=== PATIENT | male | born 1955 | race Caucasian/White ===

== ENCOUNTER 2019-11-28 09:12 | Outpatient (CLI) | payer OTHER, SELFPAY ==
--- NOTE | 2019-11-28 09:16 | ECG_ITS ---
Measurements Intervals Joseph Rate: 56 P: 48 IN: 135 QRS: 62 QRSD: 110 T: 50 QT: 401 QTc: 388 Interpretive Statements SINUS BRADYCARDIA MINIMAL Q WAVES- INFERIOR LEADS BORDERLINE ECG Electronically Signed On 11-28-2019 10:47:29 DIGITAL PRODUCT MANAGER by Rubin León D.O.
== END 2019-11-28 09:13 | disposition home or self-care (01) ==
LOC: ANHSURGERY 09:16
PROVIDERS: PCP Emergency Medicine; Visit Provider Surgery
DX: I10 Essential (primary) hypertension (principal)
CPT/HCPCS: 93005

== ENCOUNTER 2019-12-06 01:39 | Day surgery (SDC) | payer OTHER, SELFPAY ==
[2019-11-22 14:13] VITALS: BMI 25.1
--- NOTE | 2019-12-05 11:15 | PM.SD ---
Same Day Admit/Disch: HPI History of Present Illness Chief complaint: Right Inguinal Hernia Narrative: Aditya Walters is a 64 year old male who presented with a bulge in the right groin area for 7 or 8 months. It has gotten larger. He had a previous left inguinal hernia repaired in 2013 by another surgeon. He was seen in the office and felt to have a small right inguinal hernia. He is taken to surgery now for right inguinal hernia repair. [facility] Past Medical History Medical History HTN (hypertension) Mitral valve prolapse Family History Family History Mother Diabetes mellitus Cerebrovascular accident Pulmonary fibrosis Sibling Acute myocardial infarction Heart attack Father Family history of congestive heart failure Social History Social History Smoking status: Never smoker Alcohol intake: current Same Day Admit/Disch: Med Pre-admit Medications Home Medications Medication Instructions Recorded Confirmed Type losartan 100 mg tablet 100 mg PO DAILY 10/23/19 12/06/19 History hydrocodone-acetaminophen 1 - 2 tablet PO Q6H PRN #7 tablet 12/06/19 Rx ketorolac 10 mg PO Q6H 4 Days #16 tablet 12/06/19 Rx Exam Const: General: comfortable, no acute distress, alert and awake HENMT: Head: normocephalic and atraumatic Mouth: Yes Normal oral and palatal mucosa present Eyes: Conjunctivae: conjunctivae normal Pupils: Equal, round and reactive pupils present EOM: EOMs intact bilaterally Neck: Neck: normal visual inspection, no lymphadenopathy and nontender Resp: Effort & Inspection: normal respiratory effort Auscultation: clear to auscultation bilaterally Cardio: Rate: regular rate Rhythm: regular rhythm Heart sounds: no gallops, no murmurs and no rubs GI: Inspection: non-distended GI Palp: Yes Soft to palpation, No Tenderness to palpation present (GI), No Hepatomegaly present and No Splenomegaly present : Male General Exam: Yes hernia ( Right inguinal bulge which pulses with cough. Difficult to palpate.) Penis: Yes normal penis Scrotum: scrotum normal Testes: Testes normal Skin: Lesions: no lesions Rashes: no rashes Neuro: General: no focal motor deficits and CN's II-XI intact bilaterally Cranial nerves: Yes Equal, round and reactive pupils present, Yes Bilaterally intact EOM present, Yes facial symmetry and Yes Midline tongue present Speech: normal speech Motor exam (neuro): 5/5 motor strength present throughout and Motor abnormalities not present Extrem: General: no clubbing, cyanosis or edema and edema Psych: Affect: normal affect Thought process: Normal thought process present Insight: Good insight present (Psych) DS: Summary Time Spent with Patient Time attestation: Total time spent providing and/or coordinating discharge services: DS: Diagnosis Admitting Diagnosis Admitting Diagnosis: Essential (primary) hypertension Discharge Diagnosis (1) Inguinal hernia without obstruction or gangrene: Qualifiers: Laterality: unilateral Recurrence: non-recurrent Qualified Code(s): K40.90 - Unilateral inguinal hernia, without obstruction or gangrene, not specified as recurrent Code(s): K40.90 - Unilateral inguinal hernia, without obstruction or gangrene, not specified as recurrent Status: Chronic Assessment and Plan: I have recommended proceeding with right inguinal hernia repair. The procedure was discussed in detail. the likely use of mesh was discussed. The risks, benefits, and potential complications have been discussed. The usual time off work and recovery have been discussed. All questions were answered. Patient understands and agrees to go ahead. (2) Essential (primary) hypertension: Code(s): I10 - Essential (primary) hypertension Status: Chronic Discharge Plan Discharge
[2019-12-06 06:29] VITALS: BP 138/82; PULSE 78; RESP 18; TEMP 36.3; O2SAT 99
[2019-12-06] MEDS: LACTATED RINGERS 1,000 ML 30 ML IV CONT ×2 (06:35→09:00)
--- NOTE | 2019-12-06 07:02 | WPDANESEPPF ---
Anes - Initial Pre Proc Eval Procedure: Operation Date: 12/06/19 07:30 Proposed Procedures p Right Inguinal Hernia Repair - Robbie Mckeon MD Date/Time: 12/06/19 07:02 Surgeon: Robbie Mckeon MD Pre Op Diagnosis: Right Inguinal Hernia Patient Data Age: 64 Gender: M Height: 6 ft 1 in Weight: 88.4 kg Last Vital Signs Temp 36.3 C L 12/06/19 06:29 Pulse 78 12/06/19 06:29 Resp 18 12/06/19 06:29 BP 138/82 12/06/19 06:29 Pulse Ox 99 12/06/19 06:29 Allergies Allergy/AdvReac Type Severity Reaction Status Date / Time No Known Allergies Allergy Unknown Unverified 12/06/19 06:56 Home Medications Medication Instructions Recorded Confirmed Type losartan 100 mg tablet 100 mg PO DAILY 10/23/19 12/06/19 History Patient hx anesthesia problems: none Family hx anesthesia problems: none PMFSH Past Medical History Medical History HTN (hypertension) Mitral valve prolapse Family History Family History Mother Diabetes mellitus Cerebrovascular accident Pulmonary fibrosis Sibling Acute myocardial infarction Heart attack Father Family history of congestive heart failure Social History Social History Smoking status: Never smoker Alcohol intake: current Anes - Eval Final PreProcedure Day of Procedure 12/06/19 07:02 Patient weight: normal Heart: regular rate and rhythm Lungs: clear to auscultation Airway: Mallampati scale class 1 Neurological: alert and oriented Last oral intake: >/= 8 hours ASA classification: II Emergent: no Anesthetic plan: proceed Anesthesia type and monitoring: general GIVS and standard monitoring Informed Consent: The patient's anesthetic plan and its attendant risks and benefits were discussed with the patient/family/POA. Questions were solicited and answers provided to the satisfaction of the patient/family/POA.
--- NOTE | 2019-12-06 07:16 | WPDHPUPDATE1 ---
History and Physical Update Update Date/Time: 12/06/19 07:16 History and Physical has been reviewed, including an updated exam of the patient. There are NO changes in the patient's condition. Risks, benefits, and alternatives have been discussed and questions answered. Patient agrees to proceed with procedure.
[2019-12-06] MEDS: ceFAZolin 2 GM/D5W 50 ML 2 GM/50 ML BAG IVPB (07:28)
[2019-12-06] MEDS: KETOROLAC 30 MG/ML VIAL (*BKC) IV PUSH (08:32)
--- NOTE | 2019-12-06 08:46 | PM.PROC ---
Procedure Note - Detailed Date of procedure: 12/06/19 Pre-op diagnosis: Right Inguinal Hernia Right inguinal hernia Post-op diagnosis: same (Indirect hernia) Procedure performed: Repair of right inguinal hernia with 6 cm Parietex hernia mesh system Description of procedure: The patient was taken to surgery and IV sedation was administered. The right groin and genitalia were prepped and draped. Proposed incision was marked on the skin. Local was infiltrated into the skin and the deeper subcutaneous tissues. Incision was made and deepened through the subcutaneous. Crossing veins were cauterized and divided. Dissection was carried through Monique's fascia down to the external oblique aponeurosis. The aponeurosis was exposed as was the external ring. Additional local anesthesia was infiltrated deep to the aponeurosis in the area of the spermatic cord and inguinal canal contents. The aponeurosis was opened laterally and extended medially through the external ring. The leaves of the aponeurosis were dissected free from the spermatic cord. The ileoinguinal nerve was carefully preserved throughout the dissection and was left attached to the spermatic cord. The cord was then mobilized medially on a Bruner drain. The cord was dissected back to the internal ring. Dissection was then carried out in the anteromedial spermatic cord. The hernia sac was found and dissected free. The sac was opened so that I could place a finger within the hernia sac and facilitate this dissection. This opening was then closed with a running 3 0 Vicryl suture. The sac was then dissected back to a high dissection. It was dunked into the retroperitoneum. A 6 centimeter Parietex [place] was chosen. It was folded to form a plug. It was placed in the defect. The edges were sutured to the transversalis fascia with interrupted 3 0 Vicryl suture. The hernia defect was then partially closed with some additional 3 0 Vicryl suture. Patch was then cut to the appropriate size and placed over the inguinal canal floor. The lateral leaves were passed beyond the cord. The cord and ileoinguinal nerve were then laid over the patch. The external oblique aponeurosis was closed with interrupted 3 0 Vicryl suture. Monique's fascia was closed with interrupted 3 0 Vicryl suture. The subcutaneous was closed with interrupted 4 0 Vicryl suture. Four 0 Vicryl subcuticular skin sutures were placed. The skin was closed finally with a running 4 0 Monocryl skin suture. The wound was dressed with Exofin surgical adhesive. The patient was awakened and taken to recovery in good condition. Sponge and needle counts were correct x2. Anesthesia: MAC and local (0.5% Marcaine with Exparel) Surgeon: Robbie Mckeon MD Pipeline Dispatch Operator: Luli CHINO Estimated blood loss (mL): 5 Drains: No Packing: No Pathology: none sent Complications: None Condition: stable Disposition: PACU Findings: Indirect inguinal hernia. No sliding hernia was noted.
[2019-12-06 09:00] VITALS: BP 114/91; PULSE 56; RESP 12; TEMP 36.3; O2SAT 100
[2019-12-06 09:15] VITALS: BP 106/62; PULSE 56; RESP 12
[2019-12-06 09:30] VITALS: BP 119/77; PULSE 62; RESP 12
[2019-12-06 09:45] VITALS: BP 120/77; PULSE 52; RESP 12
[2019-12-06 10:25] VITALS: BP 118/77; PULSE 50; RESP 12
--- NOTE | 2019-12-08 06:37 | WPDANESEPP ---
Anes - Eval Pre Procedure Procedure: Operation Date: 12/06/19 07:30 Proposed Procedures p Right Inguinal Hernia Repair - Robbie Mckeon MD Date/Time: 12/08/19 06:37 Pre Op Diagnosis: Right Inguinal Hernia Patient Data Age: 64 Gender: M Height: 6 ft 1 in Weight: 88.4 kg Last Vital Signs Temp 97.3 F L 12/06/19 09:00 Pulse 50 L 12/06/19 10:25 Resp 12 12/06/19 10:25 BP 118/77 12/06/19 10:25 Pulse Ox 100 12/06/19 09:00 Allergies Allergy/AdvReac Type Severity Reaction Status Date / Time No Known Allergies Allergy Unknown Unverified 12/06/19 06:56 Home Medications Medication Instructions Recorded Confirmed Type losartan 100 mg tablet 100 mg PO DAILY 10/23/19 12/06/19 History hydrocodone-acetaminophen 1 - 2 tablet PO Q6H PRN #7 tablet 12/06/19 Rx ketorolac 10 mg PO Q6H 4 Days #16 tablet 12/06/19 Rx Patient hx anesthesia problems: none Family hx anesthesia problems: none PMFSH Past Medical History Medical History (Updated 12/08/19 @ 06:39 by Sreekanth Canchola CRNA) BPH (benign prostatic hyperplasia) HTN (hypertension) Mitral valve prolapse Surgical complication involving left eye Surgical History Surgical History (Updated 12/08/19 @ 06:37 by Sreekanth Canchola CRNA) H/O left inguinal hernia repair Family History Family History Mother Diabetes mellitus Cerebrovascular accident Pulmonary fibrosis Sibling Acute myocardial infarction Heart attack Father Family history of congestive heart failure Social History Social History Smoking status: Never smoker Alcohol intake: current Comments VR 56 SB SINUS BRADYCARDIA MINIMAL Q WAVES- INFERIOR LEADS BORDERLINE ECG Exam Day of Procedure 12/08/19 06:37
== END 2019-12-06 10:42 | disposition home or self-care (01) ==
PROVIDERS: PCP Emergency Medicine; Visit Provider Surgery
PROC: (CPT 49505; principal; 2019-12-06 07:30)
DX: K40.90 Unilateral inguinal hernia, without obstruction or gangrene, not specified as recurrent (principal); I10 Essential (primary) hypertension; I34.1 Nonrheumatic mitral (valve) prolapse
CPT/HCPCS: 49505; A9270; C1781; C9290; J0690; J1885; J2250; J2405; J2704; J3010; J7120

== ENCOUNTER 2020-06-23 18:13 | Inpatient (IN) | payer OTHER, SELFPAY ==
--- NOTE | ~2020-06-23 | CT_ITS ---
EXAMINATION: CT chest abdomen pelvis w con DATE: 06/24/2020 18:35 CDT INDICATION: Possible metastatic lesion to the brain. Left-sided facial droop with weakness. TECHNIQUE: Computed tomography (CT) of the chest, abdomen, and pelvis was performed with 100 cc Omnip aque 350 intravenous contrast. The dose-length product was 532.53 mGy-cm. Automated exposure control and iterative reconstruction technique were employed. COMPARISON: CT dated 03/14/2012 FINDINGS: CHEST CT: No thoracic lymphadenopathy. Heart size normal. No significant pleural or pericardial effusion. There is atherosclerosis of the aorta and coronary arteries. No evidence for aneurysm. There is a 2 mm rig ht upper lobe nodule, axial image 23. There is a 3 mm right upper lobe nodule, axial image 43. There are a few small 2 mm left upper lobe nodules. There is a 3 mm perifissural nodule in the left upper l obe, axial image 66. There is an additional 3 mm fissural nodule, axial image 69. There is right lowe r lobe atelectasis. There is left lower lobe atelectasis. Thyroid gland is unremarkable. ABDOMEN/PELVIS CT: Gallbladder contains hyperdense material, likely sludge or vicarious excretion of contrast. The liver , spleen, pancreas, adrenal glands are unremarkable. There are subcentimeter hypodensities of both ki dneys, most likely benign. Nonobstructive bowel gas pattern. Colonic diverticulosis without evidence for diverticulitis. No lymphadenopathy. Mild thoracic and lumbar spondylosis. No osteolytic or osteob lastic lesions are identified. IMPRESSION: 1. Multiple small pulmonary nodules measuring 3 mm or less, likely benign. Follow-up low dose CT in 1 2 months recommended. 2: Bilateral lower lobe atelectasis. Reviewed, dictated and finalized at location A. IMPRESSION: 1. Multiple small pulmonary nodules measuring 3 mm or less, likely benign. Foll ow-up low dose CT in 12 months recommended. 2: Bilateral lower lobe atelectasis.
--- NOTE | ~2020-06-23 | MR_ITS ---
EXAMINATION: MR brain/brain stem wo/w con EXAM DATE: 06/24/2020 11:30 INDICATION: Left facial droop, numbness, slurred speech. TECHNIQUE: Magnetic resonance imaging (MRI) of the brain/brain stem obtained without contrast. Sagit stephanie T1, axial diffusion, gradient echo (T2*), T1, T2, FLAIR sequences obtained. Patient was then inj ected with 17 cc intravenous Multihance contrast. Axial and coronal postcontrast T1 weighted sequence s obtained. Correlation is made to head CT from yesterday. FINDINGS: There is vague approximately 2 cm region of right frontal lobe kumari-white differentiation l oss identified on CT from yesterday. This has increased T2/FLAIR weighted signal, probably mild edema , with DWI T2 shine through. No restricted diffusion as would be expected with acute and early subacu te infarctions. Postcontrast image demonstrates somewhat ringlike pattern of enhancement within this measuring up to about 1 cm in size. Differential diagnosis includes vasogenic edema from metastatic l esion, primary FORCE DISPATCHER neoplasm, infection (focal cerebritis, tuberculoma, neurocysticercosis). No fluid pocket to suggest organized abscess. There is an incidental left frontal lobe developmental venous anomaly. No other signal abnormalities or areas of abnormal enhancement. Left lobe surgical change. Flow voids are seen in the cerebral mariusz oliver on the T2 weighted sequences consistent with their expected patency. There are no extra-axial co llections. There is no acute hemorrhage. IMPRESSION: 1. Focal region of somewhat circumscribed rounded right frontal lobe enhancement with associated vaso genic edema. Nonspecific with some considerations including metastatic lesion, infection, glioma. 2. No restricted diffusion, no acute infarction. Reviewed, dictated and finalized at location A. IMPRESSION: 1. Focal region of somewhat circumscribed rounded right frontal lobe enhancemen t with associated vasogenic edema. Nonspecific with some considerations includi ng metastatic lesion, infection, glioma. 2. No restricted diffusion, no acute infarction.
--- NOTE | ~2020-06-23 | CT_ITS ---
EXAMINATION: CTA BRAIN/CAROTID DATE: 06/23/2020 18:39 INDICATION: Left-sided facial droop TECHNIQUE: Computed tomographic angiography (CTA) of the head and neck was performed with 100 mL Omni paque-350 intravenous contrast. Multiplanar reconstructions and maximum intensity projection 3D-recon structions of the carotid arteries and of the intracranial arteries were created by the technologist on a separate workstation. Automated exposure control and iterative reconstruction technique were emp loyed.The dose-length product was 1271.24 mGy-cm. COMPARISON: None. FINDINGS: Carotid arteries: There is 0% stenosis of the left and right carotid bulbs relative to normal distal artery lumen diame ter (NASCET criteria). Left vertebral artery is dominant. Cervical soft tissues are unremarkable. Mil d dependent atelectasis in the upper lungs likely related to expiratory phase of imaging. Intracranial arteries Atherosclerotic plaque without hemodynamically significant stenosis at the bilateral carotid siphons. There is no hemodynamically significant stenosis in the vertebral, basilar and internal carotid mariusz oliver. There are no aneurysms identified. Both A1 and P1 segments are patent. Is also a patent anteri or communicating artery. Cerebral arterial arborization appears symmetric. A contrast-enhanced vessel seen extending to the previously noted region of loss of kumari-white matter differentiation seen in t he right frontal lobe on prior CT which remains concerning for acute infarct. IMPRESSION: 1. 0% stenosis of the left and right carotid bulbs relative to normal distal artery lumen diameter (N ASCET criteria). 2. Normal cerebral angiogram with contrast opacified vessels extending through the region of suspecte d right frontal lobe acute infarct identified on prior CT. Reviewed, dictated and finalized at location A. IMPRESSION: 1. 0% stenosis of the left and right carotid bulbs relative to normal distal ar harvey lumen diameter (NASCET criteria). 2. Normal cerebral angiogram with contrast opacified vessels extending through the region of suspected right frontal lobe acute infarct identified on prior CT .
--- NOTE | ~2020-06-23 | CT_ITS ---
EXAMINATION: CT brain wo con DATE: 06/23/2020 18:31 INDICATION: Left-sided facial droop TECHNIQUE: Computed tomography (CT) of the head was performed without intravenous contrast. Sagittal and coronal reconstructions were performed. The mA was adjusted according to patient size. Iterative reconstruction technique was employed. The dose-length product was 681.00 mGy-cm. COMPARISON: None FINDINGS: Small region of loss of kumari-white matter differentiation in the right frontal lobe suspicious for ac wilmar infarct. 3 small old lacunar infarcts in the right frontal lobe kennedy radiata. No acute intracra nial hemorrhage or abnormal extra axial fluid collection. Ventricles are normal and symmetric. No mas s/mass effect. High attenuation material within the left lobe potentially central canal for treatment of retinal detachment. Correlate with ophthalmic history. The paranasal sinuses and mastoid air cell s are normal. IMPRESSION: 1. Small region of loss of kumari-white matter differentiation in the right frontal lobe suspicious for acute infarct. No intracranial hemorrhage. Dr. Valentine discussed these findings with Dr. Roth at 6: 38 PM. 2. 3 small old lacunar infarcts in the right frontal lobe kennedy radiata. Reviewed, dictated and finalized at location A. IMPRESSION: 1. Small region of loss of kumari-white matter differentiation in the right front al lobe suspicious for acute infarct. No intracranial hemorrhage. Dr. Valentine discussed these findings with Dr. Roth at 6:38 PM. 2. 3 small old lacunar infarcts in the right frontal lobe kennedy radiata.
--- NOTE | ~2020-06-23 | XR_ITS ---
EXAMINATION: XR chest 1V portable DATE: 06/23/2020 19:13 INDICATION: Left-sided facial droop. Weakness. TECHNIQUE: frontal view of the chest was obtained. COMPARISON: Chest radiograph dated 06/22/2018 FINDINGS: The lungs remain hyperexpanded but clear with no focal airspace opacities, pulmonary edema, pleural e ffusion or pneumothorax. The cardiomediastinal silhouette is normal. Mild degenerative skeletal junior es in the spine and both shoulders. IMPRESSION: 1. No acute cardiopulmonary disease. Reviewed, dictated and finalized at location A.
--- NOTE | 2020-06-23 18:13 | ECG_ITS ---
Measurements Intervals [place] Rate: 69 P: 83 IA: 133 QRS: 83 QRSD: 106 T: 77 QT: 384 QTc: 412 Interpretive Statements SINUS RHYTHM NORMAL ECG Electronically Signed On 06-24-2020 6:58:09 CDT by Rubin León D.O.
[2020-06-23 18:19] LABS: Glucose Point of Care 107 (65-105)
[2020-06-23 18:30] VITALS: BP 154/105; PULSE 74; RESP 18; TEMP 36.7; O2SAT 98
[2020-06-23 18:38] VITALS: BP 154/105; PULSE 74; RESP 18; TEMP 36.7; O2SAT 98
[2020-06-23 18:44] LABS: Basophils Percent Auto 0.3 % (0.2-1.2); Eosinophils Percent Auto 0.2 % (0-4.4); Hemoglobin 14.1 g/dL (14.0-18.0); Immature Granulocyte Absolute 0.03 K/mm3 (0.00-0.031); Immature Granulocyte Percent A 0.3 % (0-0.5); Lymphocytes Percent Auto 19.7 % (18.3-44.2); Mean Corpuscular HGB Conc 35.3 g/dl (32-36); Mean Corpuscular Hemoglobin 32.3 pg (26-34); Mean Corpuscular Volume 91.7 fl (80-100); Mean Platelet Volume 9.7 fl (7.4-10.4); Monocytes Absolute Auto 0.5 K/mm3 (0.1-0.6); Monocytes Percent Auto 4.9 % (2.6-8.5); Neutrophils Absolute Auto 6.8 K/mm3 (1.3-6.7); Neutrophils Percent Auto 74.6 % (45.5-73.1); Platelet Count Result 205 k/mm3 (150-375); Red Blood Count 4.36 M/mm3 (4.6-6.20); Red Cell Distribution Width 11.7 % (11.5-14.5); White Blood Count 9.1 K/mm3 (4.5-10.0)
[2020-06-23 18:52] LABS: INR 1.1; Partial Thromboplastin Time 26.1 SECONDS (22.3-36.8); Prothrombin Time 14.2 Seconds (11.1-14.7)
[2020-06-23 18:55] LABS: Anion Gap 8 mmol/L (8-16); Blood Urea Nitrogen 17 mg/dL (9-20); Calcium 8.3 mg/dL (8.4-10.2); Carbon Dioxide 24 mmol/L (22-30); Chloride 101 mmol/L (98-107); Estimated CRCL calculation 75 ml/min; Estimated Glomerular Filt Rate > 60; Glucose 100 mg/dL (75-110); Sodium 133 mmol/L (137-145)
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
[2020-06-23 19:06] LABS: Troponin I < 0.012 ng/mL (0.000-0.034)
[2020-06-23] MEDS: ASPIRIN 81 MG CHEWABLE TABLET 324 MG PO (19:16)
[2020-06-23 19:27] VITALS: BP 104/79; PULSE 70; RESP 18; O2SAT 96
[2020-06-23 20:00] VITALS: BP 154/88; PULSE 69; RESP 16; TEMP 37.1; O2SAT 98
[2020-06-23] MEDS: CLOPIDOGREL BISULFATE 75 MG TABLET PO (20:03)
[2020-06-23 20:13] VITALS: BP 149/94; PULSE 70; RESP 18; O2SAT 93
--- NOTE | 2020-06-23 20:44 | PC.NURSE ---
This patient, Aditya Walters, was admitted to Medical Room 249-01. Patient/family oriented to hospital policies and general routines including ID bracelet, bed and alarms, visiting hours, pain management, procedures, bathroom and other care routines, personal items, smoking policy, room service/diet, and visiting hours. Valuables list has been completed. Information on how to activate the Rapid Response Team has been discussed. Patient/Family are encouraged to report perceived risks to care and to ask questions if they do not understand what they are told or what they should do.
[2020-06-23 20:46] VITALS: BMI 25.7
[2020-06-24] VITALS (10 sets, daily range): BP systolic 115–148; BP diastolic 64–75; PULSE 49–89; RESP 16–18; TEMP 36.4–36.8; O2SAT 95–99
--- NOTE | 2020-06-24 | ECHO_ITS ---
Patient Info Name: Aditya Walters Age: 65 years : 1955 Gender: Male Ht: 72 in Wt: 194 lbs BSA: 2.13 m2 HR: 60 bpm BP: 115 / 64 mmHg Heart Rhythm: Sinus Rhythm Technical Quality: Good Exam Date: 06/24/2020 9:35 AM Exam Location: [facility] Patient Status: Inpatient Admit Date: 06/23/2020 Staff Ordering Physician: Jacinta Quintanilla PA-C Adobe Cq Developer: Josue Little RDCS Attending Provider: Camille Villegas DO Referring Physician: Dwight MCCAIN; Exam Type: CA echo doppler w bubble study Study Info Indications 436.0 - CVA Complete two-dimensional, color flow and Doppler transthoracic echocardiogram is performed with agitated saline. Contrast/Agitated Saline Contrast/Ag. Saline: Agitated Saline Amount: 18.00 ml Existing IV Access: Yes History/Risk Factors Stroke; HTN. Summary 1. Left ventricular chamber dimension is normal. 2. Left ventricular systolic function is normal, estimated at 60-65%. 3. The left ventricular diastolic function is grade I diastolic dysfunction. 4. E/e' 6 is not elevated. 5. There is mild tricuspid valve regurgitation. 6. No pulmonary hypertension, estimated pulmonary arterial systolic pressure is 38 mmHg. Left Ventricle E/e' 6 is not elevated. Left ventricular chamber dimension is normal. Left ventricular systolic function is normal, estimated at 60-65%. The left ventricular diastolic function is grade I diastolic dysfunction. Right Ventricle Right ventricular chamber dimension is normal. Right ventricular systolic function is normal. Left Atria Left atrial chamber dimension is normal. Right Atria Right atrial chamber dimension is normal. Atrial Septum Agitated saline injection with and without valsalva maneuver demonstrated no interatrial shunt. Therefore no patent foramen ovale. Intact interatrial septum visualized by agitated saline imaging. Aortic Valve The aortic valve is trileaflet. There is no aortic valve stenosis. There is no aortic valve regurgitation. Pulmonic Valve There is no pulmonic regurgitation. Mitral Valve There is no mitral valve stenosis. There is no mitral valve regurgitation. Tricuspid Valve There is mild tricuspid valve regurgitation. No pulmonary hypertension, estimated pulmonary arterial systolic pressure is 38 mmHg. Pericardium/Pleural The pericardium appears normal. Aorta The aortic root size at the sinus of Valsalva is normal. Left Ventricular Outflow Tract Name Value Normal LVOT 2D LVOT Diameter 2.0 cm LVOT Doppler LVOT Peak Gradient 4 mmHg LVOT Mean Gradient 2 mmHg LVOT VTI 21 cm LVOT VTI/AV VTI Ratio 0.8 LVOT Stroke Volume 65 ml LVOT CO 4.2 l/min LVOT CI 2.0 l/min/m2 Mitral Valve Name Value N
[2020-06-24 05:52] LABS: Alanine Aminotransferase 19 U/L (4-50); Albumin Level 3.6 g/dL (3.5-5.1); Alkaline Phosphatase 55 U/L (38-126); Anion Gap 7 mmol/L (8-16); Aspartate Amino Transferase 19 U/L (17-59); Blood Urea Nitrogen 14 mg/dL (9-20); Carbon Dioxide 25 mmol/L (22-30); Chloride 106 mmol/L (98-107); Cholesterol 161 mg/dL (0-200); Estimated CRCL calculation 75 ml/min; Estimated Glomerular Filt Rate > 60; Glucose 91 mg/dL (75-110); HDL Direct 36 mg/dL; Potassium 3.8 mmol/L (3.4-5.0); Sodium 138 mmol/L (137-145); Triglycerides 51 mg/dL (<150)
[2020-06-24 06:03] LABS: LDL Cholesterol Direct 104 mg/dL
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
[2020-06-24] MEDS: LOSARTAN POTASSIUM 100 MG TABLET PO (10:17)
[2020-06-24] MEDS: ASPIRIN 81 MG ENTERIC TABLET PO (10:17)
--- NOTE | 2020-06-24 12:36 | PM.IMPN ---
Progress Note: A&P Assessment and Plan (1) Cerebrovascular accident: Code(s): I63.9 - Cerebral infarction, unspecified Status: Acute Assessment and Plan: MRI showed no evidence of acute CVA but shows an area of localized edema in the frontal lobe that might relate to metastatic disease , glioma? I discussed the case with Dr. Rodriges and he recommended an oncology consultation. (2) Essential hypertension: Code(s): I10 - Essential (primary) hypertension Status: Acute Assessment and Plan: Continue losartan and monitor blood pressures daily. Subjective Date/time seen: He feels better, no focal deficits, no dysarthria or any other related symptoms. 06/24/20 12:36 Review of Systems Review of Systems: All systems reviewed & are unremarkable except as noted in HPI and below Exam Const: General: no acute distress Eyes: General: appearance normal, both eyes and all related structures Pupils: Equal, round and reactive pupils present Neck: Neck: supple and no JVD Resp: Effort & Inspection: normal respiratory effort Auscultation: clear to auscultation bilaterally Cardio: Rate: regular rate Rhythm: regular rhythm GI: Auscultation: normal bowel sounds Skin: General skin exam: normal color and no rashes or lesions noted Neuro: Cognition (Neuro): normal cognition Speech: normal speech Motor exam (neuro): 5/5 motor strength present throughout and Normal motor muscle tone present throughout Other: No pronator drift , no cerebellar signs. Extrem: General: normal to inspection Psych: Mental Status: mental status grossly normal Objective Data Vital Signs Vital Signs: Vital Signs - 24 hr 06/23/20 18:30 06/23/20 18:38 06/23/20 19:27 Temperature 98.1 F 98.1 F Pulse Rate 74 74 70 Respiratory Rate 18 18 18 Blood Pressure 154/105 H 154/105 H 104/79 Pulse Oximetry 98 98 96 06/23/20 20:00 06/23/20 20:13 06/24/20 00:00 Temperature 98.7 F Pulse Rate 69 70 58 L Respiratory Rate 16 18 Blood Pressure 154/88 H 149/94 H Pulse Oximetry 98 93 06/24/20 02:00 06/24/20 04:00 06/24/20 06:00 Temperature 97.5 F L 97.7 F Pulse Rate 52 L 56 L 54 L Respiratory Rate 16 16 Blood Pressure 125/75 115/64 Pulse Oximetry 97 95 06/24/20 08:00 06/24/20 10:26 06/24/20 12:00 Temperature 98.2 F Pulse Rate 49 L 61 61 Respiratory Rate 17 Blood Pressure 142/75 H Pulse Oximetry 99 Meds/Results Medications: Active Medications Generic Name Dose Route Start Last Admin Trade Name Freq PRN Reason Stop Dose Admin Aspirin 81 mg 06/24/20 09:00 06/24/20 10:17 Aspirin Ec PO 81 mg QAM SUGAR Administration Losartan Potassium 100 mg 06/24/20 09:00 06/24/20 10:17 Cozaar PO 100 mg DAILY SUGAR Administration Radiology Results: ITS Impressions Head CT 06/23/20 18:35 IMPRESSION: 1. Small region of loss of kumari-white matter differentiation in the right frontal lobe suspicious for acute infarct. No intracranial hemorrhage. Dr. Valentine discussed these findings with Dr. Roth at 6:38 PM. 2. 3 small old lacunar infarcts in the right frontal lobe kennedy radiata. Head/Neck CTA 06/23/20 18:46 IMPRESSION: 1. 0% stenosis of the left and right carotid bulbs relative to normal distal artery lumen diameter (NASCET criteria). 2. Normal cerebral angiogram with contrast opacified vessels extending through the region of suspected right frontal lobe acute infarct identified on prior CT. Chest X-Ray 06/23/20 19:26 IMPRESSION: 1. No acute cardiopulmonary disease. Brain MRI 06/24/20 11:47 IMPRESSION: 1. Focal region of somewhat circumscribed rounded right frontal lobe enhancement with associated vasogenic edema. Nonspecific with some considerations including metastatic lesion, infection, glioma. 2. No restricted diffusion, no acute infarction.
[2020-06-24] MEDS: DEXAMETHASONE SOD PHOS INJ 4 MG/ML VIAL IV PUSH ×3 (13:11→23:30)
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
[2020-06-25] VITALS: BP 119/73; PULSE 56; PULSE 59; RESP 20; TEMP 36.5; O2SAT 97
[2020-06-25 04:00] VITALS: BP 134/70; PULSE 61; PULSE 81; RESP 18; TEMP 36.3; O2SAT 95
[2020-06-25] MEDS: DEXAMETHASONE SOD PHOS INJ 4 MG/ML VIAL IV PUSH ×2 (05:28→12:17)
[2020-06-25 08:00] VITALS: PULSE 89
[2020-06-25] MEDS: LOSARTAN POTASSIUM 100 MG TABLET PO (08:27)
[2020-06-25] MEDS: ASPIRIN 81 MG ENTERIC TABLET PO (08:27)
[2020-06-25 10:00] VITALS: BP 124/73; PULSE 85; RESP 14; TEMP 37.2; O2SAT 96
--- NOTE | 2020-06-25 13:08 | PM.DS ---
DS: Admitting Diagnosis Admitting Diagnosis Admitting Diagnosis: Stroke symptoms. DS: Discharge Diagnosis Discharge Diagnosis (1) Brain lesion: Code(s): G93.9 - Disorder of brain, unspecified Status: Acute (2) Essential hypertension: Code(s): I10 - Essential (primary) hypertension Status: Acute (3) Pulmonary nodule: Code(s): R91.1 - Solitary pulmonary nodule Status: Acute DS: Summary Hospital Course Reason for hospitalization: Slurred speech, dysarthria Hospital Course: 65 yo that presented to the hospital with stroke like symptoms, he has slurred speech and dysarthria , his symptoms resolved by the time he got here. On CT he was found to have a right frontal lesion that looked like an acute stroke however on MRI there was no restricted diffusion , no acute infarction, there was associated vasogenic edema. This right frontal lesion is believed to be possible metastasis or a glioma. He had a ct of the chest, abdomen and pelvis looking for a primary tumor however only small lung nodules were found, these need to be followed as outpatient probably in 6-12 months. He is back at his baseline mental status at this time, he is going home on decadron 4 mg Q8 until he follows up with oncology, he will need another MRI in a few weeks and possibly a referral for neurosurgery. Status at Discharge Functional status at discharge: independent ambulation Time Spent with Patient Time attestation: Total time spent providing and/or coordinating discharge services: Time spent: Greater than 30 minutes Exam Const: General: no acute distress Eyes: Pupils: Equal, round and reactive pupils present Neck: Neck: supple and no JVD Resp: Auscultation: clear to auscultation bilaterally Cardio: Rate: regular rate Rhythm: regular rhythm GI: GI Palp: Yes Soft to palpation Auscultation: normal bowel sounds Neuro: General: gait normal Motor exam (neuro): 5/5 motor strength present throughout and Normal motor muscle tone present throughout Sensory Exam: normal sensation Extrem: General: normal to inspection Psych: Affect: Anxious affect present Discharge Plan Discharge Attending physician on discharge: Otf Portillo Consulting providers: Kurt Rodriges ; Víctor Betts Discharging Clinician: Otf Portillo Patient Disposition: Home, Self-Care Activity: no driving and as tolerated Diet: regular Discharge Instructions: Per Dr. Roxane: at time of discharge patient can be transitioned to PO decadron. Patient Instructions: Antibiotic Form, Aspirin (By mouth) Stand Alone Forms: General Discharge Information Follow-up/Referrals: Víctor Betts MD [Physician] - (In two weeks) Discharge Medications: New dexamethasone 4 mg tablet 4 mg PO TID Qty: 90 RF: 0 Continued losartan 100 mg tablet 100 mg PO DAILY RF: 0 Date of admission: 06/24/20 08:30 Primary Care Provider: Humberto Barrera Admitting Provider: Camille Villegas Attending physician on admission: Camille Villegas Condition: Stable Quality VTE Prophylaxis VTE prophylaxis: mechanical ordered
== END 2020-06-25 14:35 | disposition home or self-care (01) | DRG 72 ==
LOC: ANHED 19:14 → ANH2MED 19:51
PROVIDERS: Emergency Medicine; Physician Assistant; Admitting Provider Internal Medicine; Emergency Provider Emergency Medicine; PCP Emergency Medicine; Visit Provider Hospitalist
DX: G93.9 Disorder of brain, unspecified (principal); I10 Essential (primary) hypertension; R91.1 Solitary pulmonary nodule; R47.81 Slurred speech; R47.1 Dysarthria and anarthria; N40.0 Benign prostatic hyperplasia without lower urinary tract symptoms; R29.810 Facial weakness; R47.9 Unspecified speech disturbances; I34.1 Nonrheumatic mitral (valve) prolapse; R29.702 NIHSS score 2
CPT/HCPCS: 36415; 70450; 70496; 70498; 70553; 71045; 71260; 74177; 80048; 80053; 80061; 82948; 84484; 85025; 85610; 85730; 93005; 93306; 96374; 96375; 96376; 99285; A9270; A9577; G0378; J1100; Q9967

== ENCOUNTER 2020-07-22 15:00 | Outpatient (CLI) | payer OTHER, SELFPAY ==
[2020-07-22 16:47] LABS: Add Urine Microscopic? YES; Appearance Urine Cloudy (Clear); Bacteria Urine Trace /hpf; Bilirubin Urine Negative (Negative); Blood Urine 3+ (Negative); Color Urine Red (Yellow); Glucose Urine UA Negative (Negative); Ketones Urine Negative (Negative); Leukocyte Esterase Ur Negative LEU/UL (Negative); Mucus Urine Rare /lpf; Nitrate Urine Negative (Negative); Protein Urine 2+ mg/dL (Negative); RBC Urine >75 /hpf (0-2); Specific Grav Ur 1.012 (1.001-1.035); Urobilinogen Urine Negative mg/dL (<2.0); WBC Urine 21-30 /hpf
== END 2020-07-22 15:01 | disposition home or self-care (01) ==
PROVIDERS: Visit Provider Internal Medicine Hematology & Oncology
DX: R30.9 Painful micturition, unspecified (principal)
CPT/HCPCS: 81001; 87086

== ENCOUNTER 2020-08-14 13:43 | Outpatient (CLI) | payer OTHER, SELFPAY ==
[2020-08-14 14:03] LABS: Basophils Percent Auto 0.6 % (0.2-1.2); Eosinophils Percent Auto 0.6 % (0-4.4); Hemoglobin 13.8 g/dL (14.0-18.0); Immature Granulocyte Absolute 0.04 K/mm3 (0.00-0.031); Immature Granulocyte Percent A 0.6 % (0-0.5); Lymphocytes Absolute Auto 1.97 K/mm3 (0.9-3.2); Lymphocytes Percent Auto 28.1 % (18.3-44.2); Mean Corpuscular HGB Conc 34.5 g/dl (32-36); Mean Corpuscular Hemoglobin 31.9 pg (26-34); Mean Corpuscular Volume 92.4 fl (80-100); Mean Platelet Volume 9.4 fl (7.4-10.4); Monocytes Absolute Auto 0.7 K/mm3 (0.1-0.6); Monocytes Percent Auto 9.4 % (2.6-8.5); Neutrophils Absolute Auto 4.3 K/mm3 (1.3-6.7); Neutrophils Percent Auto 60.7 % (45.5-73.1); Platelet Count Result 251 k/mm3 (150-375); Red Blood Count 4.33 M/mm3 (4.6-6.20)
[2020-08-14 16:34] LABS: Anion Gap 8 mmol/L (8-16); Blood Urea Nitrogen 21 mg/dL (9-20); Calcium 9.2 mg/dL (8.4-10.2); Carbon Dioxide 28 mmol/L (22-30); Chloride 104 mmol/L (98-107); Estimated Glomerular Filt Rate 56; Glucose 103 mg/dL (75-110); Potassium 4.4 mmol/L (3.4-5.0); Sodium 140 mmol/L (137-145)
== END 2020-08-14 13:44 | disposition home or self-care (01) ==
LOC: ANHLAB 13:46
PROVIDERS: Visit Provider Internal Medicine Hematology & Oncology
DX: C71.9 Malignant neoplasm of brain, unspecified (principal)
CPT/HCPCS: 36415; 80048; 85025

== ENCOUNTER 2020-09-03 10:38 | Outpatient (CLI) | payer OTHER, SELFPAY ==
[2020-09-03 10:55] LABS: Basophils Absolute Auto 0.1 K/mm3 (0.0-0.1); Basophils Percent Auto 0.8 % (0.2-1.2); Eosinophils Absolute Auto 0.2 K/mm3 (0-0.3); Eosinophils Percent Auto 2.9 % (0-4.4); Hematocrit 40.7 % (42.0-52.0); Hemoglobin 13.7 g/dL (14.0-18.0); Immature Granulocyte Absolute 0.01 K/mm3 (0.00-0.031); Immature Granulocyte Percent A 0.2 % (0-0.5); Lymphocytes Absolute Auto 1.45 K/mm3 (0.9-3.2); Lymphocytes Percent Auto 23.4 % (18.3-44.2); Mean Corpuscular HGB Conc 33.7 g/dl (32-36); Mean Corpuscular Hemoglobin 31.6 pg (26-34); Mean Corpuscular Volume 93.8 fl (80-100); Mean Platelet Volume 9.6 fl (7.4-10.4); Monocytes Absolute Auto 0.6 K/mm3 (0.1-0.6); Monocytes Percent Auto 10.2 % (2.6-8.5); Neutrophils Absolute Auto 3.9 K/mm3 (1.3-6.7); Neutrophils Percent Auto 62.5 % (45.5-73.1); Platelet Count Result 274 k/mm3 (150-375); Red Blood Count 4.34 M/mm3 (4.6-6.20); Red Cell Distribution Width 12.4 % (11.5-14.5); White Blood Count 6.2 K/mm3 (4.5-10.0)
[2020-09-03 10:59] LABS: Blood Urea Nitrogen 19 mg/dL (8-26); Carbon Dioxide 28 mmol/L (22-30); Chloride 103 mmol/L (98-109); Estimated Glomerular Filt Rate > 60; Glucose 106 mg/dL (70-105); Potassium 4.2 mmol/L (3.5-4.9); Sodium 140 mmol/L (138-146)
== END 2020-09-03 10:39 | disposition home or self-care (01) ==
PROVIDERS: Visit Provider Internal Medicine Hematology & Oncology
DX: C71.1 Malignant neoplasm of frontal lobe (principal)
CPT/HCPCS: 36415; 80048; 85025

== ENCOUNTER 2020-09-17 10:39 | Outpatient (CLI) | payer OTHER, SELFPAY ==
[2020-09-17 10:52] LABS: Basophils Percent Auto 0.7 % (0.2-1.2); Eosinophils Absolute Auto 0.3 K/mm3 (0-0.3); Hematocrit 42.1 % (42.0-52.0); Hemoglobin 13.9 g/dL (14.0-18.0); Immature Granulocyte Absolute 0.02 K/mm3 (0.00-0.031); Immature Granulocyte Percent A 0.3 % (0-0.5); Lymphocytes Absolute Auto 0.95 K/mm3 (0.9-3.2); Lymphocytes Percent Auto 16.4 % (18.3-44.2); Mean Corpuscular Hemoglobin 31.7 pg (26-34); Mean Corpuscular Volume 96.1 fl (80-100); Mean Platelet Volume 9.4 fl (7.4-10.4); Monocytes Absolute Auto 0.6 K/mm3 (0.1-0.6); Monocytes Percent Auto 10.2 % (2.6-8.5); Neutrophils Absolute Auto 3.9 K/mm3 (1.3-6.7); Neutrophils Percent Auto 67.4 % (45.5-73.1); Platelet Count Result 220 k/mm3 (150-375); Red Blood Count 4.38 M/mm3 (4.6-6.20); Red Cell Distribution Width 12.6 % (11.5-14.5); White Blood Count 5.8 K/mm3 (4.5-10.0)
[2020-09-17 10:58] LABS: Blood Urea Nitrogen 22 mg/dL (8-26); Carbon Dioxide 28 mmol/L (22-30); Chloride 103 mmol/L (98-109); Estimated Glomerular Filt Rate > 60; Glucose 102 mg/dL (70-105); Potassium 4.5 mmol/L (3.5-4.9); Sodium 141 mmol/L (138-146)
== END 2020-09-17 10:40 | disposition home or self-care (01) ==
LOC: ANHLAB 10:41
PROVIDERS: Visit Provider Internal Medicine Hematology & Oncology
DX: C71.1 Malignant neoplasm of frontal lobe (principal)
CPT/HCPCS: 36415; 80048; 85025

== ENCOUNTER 2020-10-14 09:22 | Outpatient (CLI) | payer OTHER, SELFPAY ==
--- NOTE | ~2020-10-14 | MR_ITS ---
EXAMINATION: MR brain/brain stem wo/w con DATE: 10/14/2020 10:56 INDICATION: Glioblastoma, frontal lobe. TECHNIQUE: Magnetic resonance imaging (MRI) of the brain and brainstem was performed without and with 14 mL MultiHance intravenous contrast. Sequences included sagittal and axial T1-weighted FSE, axial diffusion-weighted FS EPI, axial T2*-weighted GRE, axial T2-weighted FLAIR Propeller, and axial T2-we ighted Propeller. Postcontrast sequences included axial, sagittal, and coronal T1-weighted FSE. Appar ent diffusion coefficient (ADC) maps were created. COMPARISON: Brain MRI 06/20/2020, head CT 06/23/2020 FINDINGS: There are changes of resection of a mass from right frontal lobe with blood products in the resection cavity. There is increased T2-weighted signal intensity in the tissue around the surgical bed including kumari and white matter. Some of this volume demonstrated increased T2-weighted signal in tensity on the presurgical brain MRI. There is contrast enhancement at the margins of the resection c avity that is likely from the surgery. The portions of the mass that enhanced on the prior MRI have b een resected. There is a developmental venous anomaly in left frontal lobe. There is no acute ischemi c infarct. The ventricles are normal in size. There is mild mucosal thickening in the ethmoid sinuses . There is injected material in the left ocular globe. The mastoid air cells are normal. IMPRESSION: 1. Surgical changes in right frontal lobe. Some areas of abnormal signal around the resection bed dem onstrated abnormal signal on the precontrast MRI suspicious for residual neoplasm. Reviewed, dictated and finalized at location A. D EVIDENCE TECHNICIAN IMPRESSION: 1. Surgical changes in right frontal lobe. Some areas of abnormal signal around the resection bed demonstrated abnormal signal on the precontrast MRI suspicio us for residual neoplasm.
[2020-10-14 11:18] LABS: Basophils Percent Auto 0.5 % (0.2-1.2); Eosinophils Absolute Auto 0.1 K/mm3 (0-0.3); Eosinophils Percent Auto 2.5 % (0-4.4); Hematocrit 39.5 % (42.0-52.0); Hemoglobin 13.3 g/dL (14.0-18.0); Immature Granulocyte Absolute 0.02 K/mm3 (0.00-0.031); Immature Granulocyte Percent A 0.4 % (0-0.5); Lymphocytes Absolute Auto 0.89 K/mm3 (0.9-3.2); Lymphocytes Percent Auto 15.6 % (18.3-44.2); Mean Corpuscular HGB Conc 33.7 g/dl (32-36); Mean Corpuscular Volume 95.2 fl (80-100); Mean Platelet Volume 9.5 fl (7.4-10.4); Monocytes Absolute Auto 0.6 K/mm3 (0.1-0.6); Monocytes Percent Auto 9.6 % (2.6-8.5); Neutrophils Absolute Auto 4.1 K/mm3 (1.3-6.7); Neutrophils Percent Auto 71.4 % (45.5-73.1); Platelet Count Result 172 k/mm3 (150-375); Red Blood Count 4.15 M/mm3 (4.6-6.20); Red Cell Distribution Width 12.1 % (11.5-14.5); White Blood Count 5.7 K/mm3 (4.5-10.0)
[2020-10-14 12:28] LABS: Anion Gap 5 mmol/L (8-16); Blood Urea Nitrogen 21 mg/dL (9-20); Calcium 9.4 mg/dL (8.4-10.2); Carbon Dioxide 30 mmol/L (22-30); Chloride 103 mmol/L (98-107); Estimated Glomerular Filt Rate > 60; Glucose 93 mg/dL (75-110); Potassium 4.9 mmol/L (3.4-5.0); Sodium 138 mmol/L (137-145)
[2020-10-15 11:23] LABS: Estimated Glomerular Filt Rate > 60
== END 2020-10-14 09:23 | disposition home or self-care (01) ==
PROVIDERS: PCP Emergency Medicine; Visit Provider Internal Medicine Hematology & Oncology
DX: C71.1 Malignant neoplasm of frontal lobe (principal)
CPT/HCPCS: 36415; 70553; 80048; 85025; A9577

== ENCOUNTER 2020-11-15 08:47 | Outpatient (CLI) | payer OTHER, SELFPAY ==
[2020-11-15 09:02] LABS: Basophils Percent Auto 0.5 % (0.2-1.2); Eosinophils Absolute Auto 0.1 K/mm3 (0-0.3); Eosinophils Percent Auto 2.3 % (0-4.4); Hematocrit 46.1 % (42.0-52.0); Hemoglobin 15.7 g/dL (14.0-18.0); Immature Granulocyte Absolute 0.01 K/mm3 (0.00-0.031); Immature Granulocyte Percent A 0.2 % (0-0.5); Lymphocytes Absolute Auto 1.49 K/mm3 (0.9-3.2); Lymphocytes Percent Auto 26.8 % (18.3-44.2); Mean Corpuscular HGB Conc 34.1 g/dl (32-36); Mean Corpuscular Hemoglobin 31.8 pg (26-34); Mean Corpuscular Volume 93.3 fl (80-100); Mean Platelet Volume 9.7 fl (7.4-10.4); Monocytes Absolute Auto 0.5 K/mm3 (0.1-0.6); Monocytes Percent Auto 9.5 % (2.6-8.5); Neutrophils Absolute Auto 3.4 K/mm3 (1.3-6.7); Neutrophils Percent Auto 60.7 % (45.5-73.1); Platelet Count Result 183 k/mm3 (150-375); Red Blood Count 4.94 M/mm3 (4.6-6.20); Red Cell Distribution Width 11.5 % (11.5-14.5); White Blood Count 5.6 K/mm3 (4.5-10.0)
[2020-11-15 09:06] LABS: Blood Urea Nitrogen 23 mg/dL (8-26); Carbon Dioxide 29 mmol/L (22-30); Chloride 102 mmol/L (98-109); Estimated Glomerular Filt Rate > 60; Glucose 100 mg/dL (70-105); Potassium 4.2 mmol/L (3.5-4.9); Sodium 143 mmol/L (138-146)
[2020-11-15 11:14] LABS: Alanine Aminotransferase 21 U/L (4-50); Alkaline Phosphatase 61 U/L (38-126); Anion Gap 7 mmol/L (8-16); Aspartate Amino Transferase 19 U/L (17-59); Bilirubin,Total 1.6 mg/dL (0.2-1.3); Blood Urea Nitrogen 23 mg/dL (9-20); Calcium 9.7 mg/dL (8.4-10.2); Carbon Dioxide 28 mmol/L (22-30); Chloride 104 mmol/L (98-107); Estimated Glomerular Filt Rate > 60; Glucose 100 mg/dL (75-110); Potassium 4.5 mmol/L (3.4-5.0); Sodium 139 mmol/L (137-145)
== END 2020-11-15 08:48 | disposition home or self-care (01) ==
LOC: ANHLAB 08:48
PROVIDERS: PCP Emergency Medicine; Visit Provider Internal Medicine Hematology & Oncology
DX: C71.1 Malignant neoplasm of frontal lobe (principal)
CPT/HCPCS: 36415; 80048; 80053; 85025

== ENCOUNTER 2020-12-13 08:59 | Outpatient (CLI) | payer OTHER, SELFPAY ==
--- NOTE | ~2020-12-13 | MR_ITS ---
EXAMINATION: MR brain/brain stem wo/w con DATE: 12/13/2020 10:29 INDICATION: Malignant neoplasm of overlapping sites of the brain. Glioblastoma. TECHNIQUE: Magnetic resonance imaging (MRI) of the brain and brainstem was performed without and with 14 mL MultiHance intravenous contrast. Sequences included sagittal and axial T1-weighted FSE, axial diffusion-weighted FS EPI, axial T2*-weighted GRE, axial T2-weighted FLAIR Propeller, and axial T2-we ighted Propeller. Postcontrast sequences included axial, sagittal, and coronal T1-weighted FSE. Appar ent diffusion coefficient (ADC) maps were created. COMPARISON: Brain MRI 10/14/2020, 06/24/20 FINDINGS: There are changes of mass resection in right frontoparietal region. There is thin enhanceme nt at the resection margin, likely surgical change. There are areas of increased T2-weighted signal i ntensity around the resection cavity involving kumari and white matter that demonstrated increased T2-w eighted signal intensity on the preop MRI. There is a developmental venous anomaly in left frontal lo be. There is no acute ischemic infarct. The ventricles are normal in size. There are likely changes o f left ocular lens replacement surgery. There is injected material in left ocular globe. The mastoid air cells are normal. IMPRESSION: 1. Surgical changes in the right frontoparietal region. Stable areas of abnormal signal around the re section bed demonstrated abnormal signal on the precontrast MRI suspicious for residual neoplasm. Reviewed, dictated and finalized at location A. NESS OFFICE ASSISTANT IMPRESSION: 1. Surgical changes in the right frontoparietal region. Stable areas of abnorma l signal around the resection bed demonstrated abnormal signal on the precontra st MRI suspicious for residual neoplasm.
[2020-12-13 11:08] LABS: Basophils Percent Auto 0.4 % (0.2-1.2); Eosinophils Absolute Auto 0.1 K/mm3 (0-0.3); Eosinophils Percent Auto 1.7 % (0-4.4); Hematocrit 43.3 % (42.0-52.0); Hemoglobin 14.7 g/dL (14.0-18.0); Immature Granulocyte Absolute 0.03 K/mm3 (0.00-0.031); Immature Granulocyte Percent A 0.4 % (0-0.5); Lymphocytes Absolute Auto 1.86 K/mm3 (0.9-3.2); Lymphocytes Percent Auto 25.6 % (18.3-44.2); Mean Corpuscular HGB Conc 33.9 g/dl (32-36); Mean Corpuscular Hemoglobin 31.7 pg (26-34); Mean Corpuscular Volume 93.5 fl (80-100); Mean Platelet Volume 8.8 fl (7.4-10.4); Monocytes Absolute Auto 0.6 K/mm3 (0.1-0.6); Monocytes Percent Auto 8.1 % (2.6-8.5); Neutrophils Absolute Auto 4.6 K/mm3 (1.3-6.7); Neutrophils Percent Auto 63.8 % (45.5-73.1); Platelet Count Result 196 k/mm3 (150-375); Red Blood Count 4.63 M/mm3 (4.6-6.20); Red Cell Distribution Width 11.9 % (11.5-14.5); White Blood Count 7.3 K/mm3 (4.5-10.0)
[2020-12-13 12:36] LABS: Alanine Aminotransferase 26 U/L (4-50); Alkaline Phosphatase 50 U/L (38-126); Anion Gap 8 mmol/L (8-16); Aspartate Amino Transferase 20 U/L (17-59); Bilirubin,Total 1.5 mg/dL (0.2-1.3); Blood Urea Nitrogen 26 mg/dL (9-20); Calcium 9.7 mg/dL (8.4-10.2); Carbon Dioxide 26 mmol/L (22-30); Chloride 106 mmol/L (98-107); Estimated Glomerular Filt Rate > 60; Glucose 96 mg/dL (75-110); Sodium 140 mmol/L (137-145)
== END 2020-12-13 09:00 | disposition home or self-care (01) ==
PROVIDERS: PCP Emergency Medicine; Visit Provider Internal Medicine Hematology & Oncology
DX: C71.1 Malignant neoplasm of frontal lobe (principal)
CPT/HCPCS: 36415; 70553; 80053; 85025; A9577

== ENCOUNTER 2021-01-15 09:15 | Outpatient (CLI) | payer OTHER, SELFPAY ==
[2021-01-15 09:39] LABS: Basophils Percent Auto 0.6 % (0.2-1.2); Eosinophils Absolute Auto 0.1 K/mm3 (0-0.3); Hematocrit 39.7 % (42.0-52.0); Hemoglobin 13.8 g/dL (14.0-18.0); Immature Granulocyte Absolute 0.03 K/mm3 (0.00-0.031); Immature Granulocyte Percent A 0.6 % (0-0.5); Lymphocytes Absolute Auto 1.48 K/mm3 (0.9-3.2); Lymphocytes Percent Auto 29.9 % (18.3-44.2); Mean Corpuscular HGB Conc 34.8 g/dl (32-36); Mean Corpuscular Hemoglobin 32.2 pg (26-34); Mean Corpuscular Volume 92.8 fl (80-100); Mean Platelet Volume 9.3 fl (7.4-10.4); Monocytes Absolute Auto 0.5 K/mm3 (0.1-0.6); Monocytes Percent Auto 9.7 % (2.6-8.5); Neutrophils Absolute Auto 2.8 K/mm3 (1.3-6.7); Neutrophils Percent Auto 57.2 % (45.5-73.1); Platelet Count Result 203 k/mm3 (150-375); Red Blood Count 4.28 M/mm3 (4.6-6.20); Red Cell Distribution Width 12.5 % (11.5-14.5)
[2021-01-15 09:43] LABS: Blood Urea Nitrogen 25 mg/dL (8-26); Carbon Dioxide 29 mmol/L (22-30); Chloride 104 mmol/L (98-109); Estimated Glomerular Filt Rate > 60; Glucose 79 mg/dL (70-105); Potassium 3.9 mmol/L (3.5-4.9); Sodium 141 mmol/L (138-146)
[2021-01-15 18:42] LABS: Alanine Aminotransferase 41 U/L (4-50); Albumin Level 4.1 g/dL (3.5-5.1); Alkaline Phosphatase 51 U/L (38-126); Anion Gap 8 mmol/L (8-16); Aspartate Amino Transferase 29 U/L (17-59); Bilirubin,Total 1.5 mg/dL (0.2-1.3); Blood Urea Nitrogen 26 mg/dL (9-20); Calcium 9.5 mg/dL (8.4-10.2); Carbon Dioxide 28 mmol/L (22-30); Chloride 105 mmol/L (98-107); Estimated Glomerular Filt Rate > 60; Glucose 79 mg/dL (75-110); Potassium 4.1 mmol/L (3.4-5.0); Sodium 141 mmol/L (137-145)
== END 2021-01-15 09:16 | disposition home or self-care (01) ==
LOC: ANHLAB 09:16
PROVIDERS: PCP Emergency Medicine; Visit Provider Internal Medicine Hematology & Oncology
DX: C71.1 Malignant neoplasm of frontal lobe (principal)
CPT/HCPCS: 36415; 80048; 80053; 85025

== ENCOUNTER 2021-02-10 09:30 | Outpatient (CLI) | payer OTHER, SELFPAY ==
--- NOTE | ~2021-02-10 | MR_ITS ---
EXAMINATION: MR brain/brain stem wo/w con DATE: 02/10/2021 11:17 INDICATION: Glioblastoma of frontal lobe. TECHNIQUE: Magnetic resonance imaging (MRI) of the brain and brainstem was performed without and with 14 mL MultiHance intravenous contrast. Sequences included sagittal and axial T1-weighted FSE, axial diffusion-weighted FS EPI, axial T2*-weighted GRE, axial T2-weighted FLAIR Propeller, and axial T2-we ighted Propeller. Postcontrast sequences included axial, sagittal, and coronal T1-weighted FSE. Appar ent diffusion coefficient (ADC) maps were created. COMPARISON: Brain MRI 12/13/2020 FINDINGS: There are changes of mass resection of right frontoparietal region. The rim of contrast enh ancement at the resection margins has increased in thickness. There is a worsened distribution of inc reased T2-weighted signal intensity in the surrounding white matter, consistent with vasogenic edema and treatment change. There is a developmental venous anomaly in left frontal lobe. There is no acute ischemic infarct. The ventricles are normal in size. There are likely changes of left ocular lens re placement surgery. There is injected material in the left ocular globe. The mastoid air cells are nor mal. IMPRESSION: 1. Increased thickness of the rim of contrast enhancement at the right frontoparietal resection cavit y with worsened distribution of surrounding increased T2-weighted signal intensity, consistent with g lioblastoma and treatment changes. Reviewed, dictated and finalized at location A. IMPRESSION: 1. Increased thickness of the rim of contrast enhancement at the right frontopa rietal resection cavity with worsened distribution of surrounding increased T2- weighted signal intensity, consistent with glioblastoma and treatment changes.
== END 2021-02-10 09:31 | disposition home or self-care (01) ==
PROVIDERS: PCP Emergency Medicine; Visit Provider Internal Medicine Hematology & Oncology
DX: C71.1 Malignant neoplasm of frontal lobe (principal)
CPT/HCPCS: 70553; A9577

== ENCOUNTER 2021-02-12 13:24 | Outpatient (CLI) | payer OTHER, SELFPAY ==
[2021-02-12 13:38] LABS: Basophils Percent Auto 0.6 % (0.2-1.2); Eosinophils Absolute Auto 0.1 K/mm3 (0-0.3); Eosinophils Percent Auto 2.6 % (0-4.4); Hematocrit 39.5 % (42.0-52.0); Hemoglobin 13.6 g/dL (14.0-18.0); Immature Granulocyte Absolute 0.01 K/mm3 (0.00-0.031); Immature Granulocyte Percent A 0.2 % (0-0.5); Lymphocytes Absolute Auto 1.01 K/mm3 (0.9-3.2); Mean Corpuscular HGB Conc 34.4 g/dl (32-36); Mean Corpuscular Hemoglobin 33.4 pg (26-34); Mean Corpuscular Volume 97.1 fl (80-100); Mean Platelet Volume 9.2 fl (7.4-10.4); Monocytes Absolute Auto 0.5 K/mm3 (0.1-0.6); Monocytes Percent Auto 9.3 % (2.6-8.5); Neutrophils Absolute Auto 3.4 K/mm3 (1.3-6.7); Neutrophils Percent Auto 67.3 % (45.5-73.1); Platelet Count Result 197 k/mm3 (150-375); Red Blood Count 4.07 M/mm3 (4.6-6.20); Red Cell Distribution Width 13.1 % (11.5-14.5)
[2021-02-12 13:42] LABS: Blood Urea Nitrogen 18 mg/dL (8-26); Carbon Dioxide 29 mmol/L (22-30); Chloride 101 mmol/L (98-109); Estimated Glomerular Filt Rate > 60; Glucose 104 mg/dL (70-105); Potassium 4.2 mmol/L (3.5-4.9); Sodium 139 mmol/L (138-146)
[2021-02-12 16:39] LABS: Alanine Aminotransferase 16 U/L (4-50); Albumin Level 4.1 g/dL (3.5-5.1); Alkaline Phosphatase 58 U/L (38-126); Anion Gap 5 mmol/L (8-16); Aspartate Amino Transferase 20 U/L (17-59); Bilirubin,Total 1.5 mg/dL (0.2-1.3); Blood Urea Nitrogen 19 mg/dL (9-20); Calcium 9.5 mg/dL (8.4-10.2); Carbon Dioxide 30 mmol/L (22-30); Chloride 103 mmol/L (98-107); Estimated Glomerular Filt Rate > 60; Glucose 108 mg/dL (75-110); Potassium 4.4 mmol/L (3.4-5.0); Sodium 138 mmol/L (137-145)
== END 2021-02-12 13:25 | disposition home or self-care (01) ==
LOC: ANHLAB 13:26
PROVIDERS: PCP Emergency Medicine; Visit Provider Internal Medicine Hematology & Oncology
DX: C71.1 Malignant neoplasm of frontal lobe (principal)
CPT/HCPCS: 36415; 80048; 80053; 85025

== ENCOUNTER 2021-03-14 10:19 | Outpatient (CLI) | payer OTHER, SELFPAY ==
[2021-03-14 10:41] LABS: Basophils Percent Auto 0.6 % (0.2-1.2); Eosinophils Absolute Auto 0.2 K/mm3 (0-0.3); Eosinophils Percent Auto 2.6 % (0-4.4); Hematocrit 43.4 % (42.0-52.0); Immature Granulocyte Absolute 0.02 K/mm3 (0.00-0.031); Immature Granulocyte Percent A 0.3 % (0-0.5); Lymphocytes Absolute Auto 1.26 K/mm3 (0.9-3.2); Lymphocytes Percent Auto 19.1 % (18.3-44.2); Mean Corpuscular HGB Conc 34.6 g/dl (32-36); Mean Corpuscular Hemoglobin 33.8 pg (26-34); Mean Corpuscular Volume 97.7 fl (80-100); Mean Platelet Volume 8.9 fl (7.4-10.4); Monocytes Absolute Auto 0.6 K/mm3 (0.1-0.6); Monocytes Percent Auto 9.3 % (2.6-8.5); Neutrophils Absolute Auto 4.5 K/mm3 (1.3-6.7); Neutrophils Percent Auto 68.1 % (45.5-73.1); Platelet Count Result 165 k/mm3 (150-375); Red Blood Count 4.44 M/mm3 (4.6-6.20); White Blood Count 6.6 K/mm3 (4.5-10.0)
[2021-03-14 10:49] LABS: Blood Urea Nitrogen 26 mg/dL (8-26); Carbon Dioxide 28 mmol/L (22-30); Chloride 104 mmol/L (98-109); Estimated Glomerular Filt Rate > 60; Glucose 91 mg/dL (70-105); Potassium 4.4 mmol/L (3.5-4.9); Sodium 138 mmol/L (138-146)
[2021-03-14 12:45] LABS: Alanine Aminotransferase 30 U/L (4-50); Alkaline Phosphatase 56 U/L (38-126); Anion Gap 7 mmol/L (8-16); Aspartate Amino Transferase 28 U/L (17-59); Blood Urea Nitrogen 26 mg/dL (9-20); Calcium 9.5 mg/dL (8.4-10.2); Carbon Dioxide 26 mmol/L (22-30); Chloride 104 mmol/L (98-107); Estimated Glomerular Filt Rate > 60; Glucose 93 mg/dL (75-110); Potassium 4.7 mmol/L (3.4-5.0); Sodium 137 mmol/L (137-145)
== END 2021-03-14 10:20 | disposition home or self-care (01) ==
LOC: ANHLAB 10:21
PROVIDERS: PCP Emergency Medicine; Visit Provider Internal Medicine Hematology & Oncology
DX: C71.1 Malignant neoplasm of frontal lobe (principal)
CPT/HCPCS: 36415; 80048; 80053; 85025

== ENCOUNTER 2021-04-11 09:53 | Outpatient (CLI) | payer OTHER, SELFPAY ==
[2021-04-11 10:21] LABS: Basophils Percent Auto 0.2 % (0.2-1.2); Eosinophils Percent Auto 0.2 % (0-4.4); Hematocrit 39.5 % (42.0-52.0); Hemoglobin 13.9 g/dL (14.0-18.0); Immature Granulocyte Absolute 0.11 K/mm3 (0.00-0.031); Immature Granulocyte Percent A 1.2 % (0-0.5); Lymphocytes Absolute Auto 1.63 K/mm3 (0.9-3.2); Lymphocytes Percent Auto 17.1 % (18.3-44.2); Mean Corpuscular HGB Conc 35.2 g/dl (32-36); Mean Corpuscular Volume 93.8 fl (80-100); Mean Platelet Volume 8.9 fl (7.4-10.4); Monocytes Percent Auto 10.9 % (2.6-8.5); Neutrophils Absolute Auto 6.7 K/mm3 (1.3-6.7); Neutrophils Percent Auto 70.4 % (45.5-73.1); Platelet Count Result 185 k/mm3 (150-375); Red Blood Count 4.21 M/mm3 (4.6-6.20); White Blood Count 9.5 K/mm3 (4.5-10.0)
[2021-04-11 10:25] LABS: Blood Urea Nitrogen 16 mg/dL (8-26); Carbon Dioxide 24 mmol/L (22-30); Chloride 102 mmol/L (98-109); Estimated Glomerular Filt Rate > 60; Glucose 98 mg/dL (70-105); Potassium 3.8 mmol/L (3.5-4.9); Sodium 139 mmol/L (138-146)
[2021-04-11 15:06] LABS: Alanine Aminotransferase 23 U/L (4-50); Albumin Level 3.5 g/dL (3.5-5.1); Alkaline Phosphatase 52 U/L (38-126); Anion Gap 8 mmol/L (8-16); Aspartate Amino Transferase 19 U/L (17-59); Blood Urea Nitrogen 17 mg/dL (9-20); Calcium 9.5 mg/dL (8.4-10.2); Carbon Dioxide 24 mmol/L (22-30); Chloride 105 mmol/L (98-107); Estimated Glomerular Filt Rate > 60; Glucose 93 mg/dL (75-110); Sodium 137 mmol/L (137-145)
== END 2021-04-11 09:54 | disposition home or self-care (01) ==
LOC: ANHLAB 09:56
PROVIDERS: PCP Emergency Medicine; Visit Provider Internal Medicine Hematology & Oncology
DX: C71.9 Malignant neoplasm of brain, unspecified (principal)
CPT/HCPCS: 36415; 80048; 80053; 85025

== ENCOUNTER 2021-04-29 10:05 | Outpatient (CLI) | payer OTHER, SELFPAY ==
--- NOTE | ~2021-04-29 | MR_ITS ---
EXAMINATION: MR brain/brain stem wo/w con DATE: 04/29/2021 11:33 INDICATION: Malignant neoplasm of overlapping sites of brain. TECHNIQUE: Magnetic resonance imaging (MRI) of the brain and brainstem was performed without and with 14 mL MultiHance intravenous contrast. Sequences included sagittal and axial T1-weighted FSE, axial diffusion-weighted FS EPI, axial T2*-weighted GRE, axial T2-weighted FLAIR Propeller, and axial T2-we ighted Propeller. Postcontrast sequences included axial, sagittal, and coronal T1-weighted FSE. Appar ent diffusion coefficient (ADC) maps were created. COMPARISON: Brain MRI 02/10/2021, 06/24/2020, 10/14/2020, 12/13/2020 FINDINGS: There are changes of mass re-resection in right frontoparietal region. There is increased T 2-weighted signal intensity in the tissue around the resection cavity and in the medial posterior lef t frontal lobe white matter, consistent with treatment change. There are areas of contrast enhancemen t at the resection margin, likely benign. There is a developmental venous anomaly in posterior left f rontal lobe. There is injected material in the left ocular globe. The paranasal sinuses are clear. Th e mastoid air cells are normal. IMPRESSION: 1. Re-resection of right frontoparietal region with surrounding treatment changes. No specific eviden ce of residual neoplasm. Reviewed, dictated and finalized at location A. IMPRESSION: 1. Re-resection of right frontoparietal region with surrounding treatment junior es. No specific evidence of residual neoplasm.
== END 2021-04-29 10:06 | disposition home or self-care (01) ==
LOC: ANHIMG 10:09
PROVIDERS: PCP Emergency Medicine; Visit Provider Radiology Radiation Oncology
DX: C71.8 Malignant neoplasm of overlapping sites of brain (principal)
CPT/HCPCS: 70553; A9577

== ENCOUNTER 2021-05-02 08:41 | Outpatient (CLI) | payer OTHER, SELFPAY ==
[2021-05-02 09:05] LABS: Basophils Absolute Auto 0.1 K/mm3 (0.0-0.1); Basophils Percent Auto 0.5 % (0.2-1.2); Eosinophils Absolute Auto 0.1 K/mm3 (0-0.3); Eosinophils Percent Auto 1.1 % (0-4.4); Hematocrit 43.9 % (42.0-52.0); Hemoglobin 14.7 g/dL (14.0-18.0); Immature Granulocyte Absolute 0.47 K/mm3 (0.00-0.031); Immature Granulocyte Percent A 4.5 % (0-0.5); Lymphocytes Absolute Auto 1.42 K/mm3 (0.9-3.2); Lymphocytes Percent Auto 13.6 % (18.3-44.2); Mean Corpuscular HGB Conc 33.5 g/dl (32-36); Mean Corpuscular Hemoglobin 32.8 pg (26-34); Mean Platelet Volume 8.7 fl (7.4-10.4); Monocytes Percent Auto 9.9 % (2.6-8.5); Neutrophils Absolute Auto 7.4 K/mm3 (1.3-6.7); Neutrophils Percent Auto 70.4 % (45.5-73.1); Platelet Count Result 187 k/mm3 (150-375); Red Blood Count 4.48 M/mm3 (4.6-6.20); Red Cell Distribution Width 13.2 % (11.5-14.5); White Blood Count 10.5 K/mm3 (4.5-10.0)
[2021-05-02 09:09] LABS: Blood Urea Nitrogen 31 mg/dL (8-26); Carbon Dioxide 25 mmol/L (22-30); Chloride 102 mmol/L (98-109); Estimated Glomerular Filt Rate > 60; Glucose 73 mg/dL (70-105); Potassium 4.3 mmol/L (3.5-4.9); Sodium 138 mmol/L (138-146)
[2021-05-02 11:39] LABS: Alanine Aminotransferase 19 U/L (4-50); Albumin Level 3.2 g/dL (3.5-5.1); Alkaline Phosphatase 56 U/L (38-126); Anion Gap 6 mmol/L (8-16); Aspartate Amino Transferase 20 U/L (17-59); Bilirubin,Total 1.2 mg/dL (0.2-1.3); Blood Urea Nitrogen 32 mg/dL (9-20); Calcium 8.9 mg/dL (8.4-10.2); Carbon Dioxide 25 mmol/L (22-30); Chloride 105 mmol/L (98-107); Estimated Glomerular Filt Rate > 60; Glucose 68 mg/dL (75-110); Potassium 4.5 mmol/L (3.4-5.0); Sodium 136 mmol/L (137-145)
== END 2021-05-02 08:42 | disposition home or self-care (01) ==
PROVIDERS: PCP Emergency Medicine; Visit Provider Internal Medicine Hematology & Oncology
DX: C71.1 Malignant neoplasm of frontal lobe (principal)
CPT/HCPCS: 36415; 80048; 80053; 85025

== ENCOUNTER 2021-05-14 09:00 | Emergency (ER) | payer OTHER, SELFPAY ==
--- NOTE | ~2021-05-14 | CT_ITS ---
EXAMINATION: CT brain wo con DATE: 05/14/2021 09:37 INDICATION: Left hemiparesis. Fall. Glioblastoma. TECHNIQUE: Computed tomography (CT) of the head was performed without intravenous contrast. The mA wa s adjusted according to patient size. Iterative reconstruction technique was employed. The dose-lengt h product was 605.33 mGy-cm. COMPARISON: Head CT 06/23/2020, brain MRI 04/29/2021 FINDINGS: There are changes of right frontoparietal mass resection. There is decreased attenuation in the surrounding tissue predominantly involving white matter. There is no intracranial hemorrhage or acute ischemic infarct. There is 5 mm leftward midline shift measured at the foramen of Monro, stable from 04/29/21. The paranasal sinuses are clear. There is hyperdense material in left ocular globe fro m prior surgery. The mastoid air cells are normal. IMPRESSION: 1. Changes of right frontoparietal mass resection. Abnormality in the surrounding tissue has worsened from the prior MRI considering differences in technique, likely a combination of vasogenic edema and changes of radiation therapy. Reviewed, dictated and finalized at location A. IMPRESSION: 1. Changes of right frontoparietal mass resection. Abnormality in the surroundi ng tissue has worsened from the prior MRI considering differences in technique, likely a combination of vasogenic edema and changes of radiation therapy.
--- NOTE | ~2021-05-14 | XR_ITS ---
EXAMINATION: XR shoulder LT min 2V DATE: 05/14/2021 09:51 INDICATION: Left shoulder pain. TECHNIQUE: 4 views of left shoulder were obtained. COMPARISON: None. FINDINGS: Bone alignment is normal. No fracture. There is mild osteoarthritis of glenohumeral joint a nd acromioclavicular joint. There is mild calcific tendinitis of the rotator cuff. IMPRESSION: 1. Mild polyarticular osteoarthritis. 2. Mild calcific tendinitis of the rotator cuff Reviewed, dictated and finalized at location A.
[2021-05-14 09:00] VITALS: BP 135/88; PULSE 74; RESP 16; TEMP 37.1; O2SAT 100
[2021-05-14] MEDS: MORPHINE SULFATE (*CRX) 4 MG/ML INJ IV PUSH (09:57)
[2021-05-14 10:04] LABS: Basophils Percent Auto 0.5 % (0.2-1.2); Eosinophils Absolute Auto 0.1 K/mm3 (0-0.3); Eosinophils Percent Auto 1.5 % (0-4.4); Hemoglobin 16.4 g/dL (14.0-18.0); Immature Granulocyte Absolute 0.25 K/mm3 (0.00-0.031); Immature Granulocyte Percent A 2.8 % (0-0.5); Lymphocytes Percent Auto 15.8 % (18.3-44.2); Mean Corpuscular HGB Conc 34.2 g/dl (32-36); Mean Corpuscular Hemoglobin 32.9 pg (26-34); Mean Corpuscular Volume 96.4 fl (80-100); Mean Platelet Volume 8.9 fl (7.4-10.4); Monocytes Absolute Auto 0.9 K/mm3 (0.1-0.6); Monocytes Percent Auto 10.2 % (2.6-8.5); Neutrophils Absolute Auto 6.2 K/mm3 (1.3-6.7); Neutrophils Percent Auto 69.2 % (45.5-73.1); Platelet Count Result 175 k/mm3 (150-375); Red Blood Count 4.98 M/mm3 (4.6-6.20); Red Cell Distribution Width 12.9 % (11.5-14.5); White Blood Count 8.9 K/mm3 (4.5-10.0)
[2021-05-14 10:16] LABS: Anion Gap 6 mmol/L (8-16); Blood Urea Nitrogen 22 mg/dL (9-20); Calcium 9.8 mg/dL (8.4-10.2); Carbon Dioxide 27 mmol/L (22-30); Chloride 103 mmol/L (98-107); Estimated CRCL calculation 63 ml/min; Estimated Glomerular Filt Rate > 60; Glucose 90 mg/dL (75-110); Potassium 4.3 mmol/L (3.4-5.0); Sodium 136 mmol/L (137-145)
--- NOTE | 2021-05-14 10:39 | ED.GENADULT ---
HPI - General Adult General Chief complaint: Fall Stated complaint: FALL Time Seen by Provider: 05/14/21 09:01 History of Present Illness HPI narrative: Patient is a 66-year-old male who presents ER status post fall. Reports he was in his garage urinating in a coffee can when he fell onto his side. He has had increased weakness on the left side over the last week and causes him to have difficulty ambulating. He has history of glioblastoma and has undergone surgery and radiation. He has decided he no longer wishes to receive radiation treatments or take medications for his cancer. He is scheduled to have a hospice consultation at his home today. Patient came here because after the fall he had struck his head but did not lose consciousness. Additionally he struck his left shoulder and was having pain in the area. Related Data Home Medications Medication Instructions Recorded Confirmed losartan 100 mg tablet 100 mg PO DAILY 10/23/19 05/12/21 atorvastatin 10 mg PO HS 07/19/20 05/12/21 levetiracetam 1,000 mg PO BID 07/19/20 05/12/21 melatonin 3 mg PO HS 07/19/20 05/12/21 pantoprazole 40 mg PO QAM 07/19/20 05/12/21 sennosides [senna] 8.6 mg PO HS 07/19/20 05/12/21 levetiracetam [Keppra] 1,000 mg PO BID 04/16/21 05/12/21 Allergies Allergy/AdvReac Type Severity Reaction Status Date / Time No Known Allergies Allergy Unknown Verified 05/12/21 13:05 Review of Systems Review of Systems: All systems reviewed & are unremarkable except as noted in HPI and below (Limited due to mental status) Constitutional: Constitutional: Denies chills, Denies fever(s) and Reports weakness Musculoskeletal: Musculoskeletal: Denies back pain, Reports arthralgias, Reports joint swelling and Denies muscle cramps Neurologic: Denies syncope, Denies headache(s), Reports focal weakness and Denies numbness PMF Past Medical History Medical History (Updated 05/14/21 @ 10:54 by Osmin Lockwood MD) Benign prostatic hyperplasia Cerebrovascular accident Small old lacunar infarcts in the right frontal lobe kennedy radiata noted on brain CT 06/23/2020. Essential hypertension Glioblastoma Left retinal detachment With resultant decrease in visual acuity after surgery. Mitral valve prolapse Surgical History Surgical History (Updated 06/24/20 @ 17:23 by Víctor Betts MD) History of left inguinal hernia repair (~03/29/13) History of right inguinal hernia repair (~12/06/19) With 6cm Parietex hernia mesh system per Dr. Mckeon. History of transurethral resection of prostate Family History Family History Mother Diabetes mellitus Cerebrovascular accident Pulmonary fibrosis Sibling Acute myocardial infarction Heart attack Father Family history of congestive heart failure Social History Social History (Updated 06/23/20 @ 21:22 by Jacinta Quintanilla PA-C) Social History: Surrogate decision maker: Bogdan Walters, . Code status: Full code. Smoking status: Former smoker Tobacco type: cigarettes Additional smoking assessment comments: smoked in his teens and not anything currently Alcohol intake: current Drinks per week: 1 Substance use: former Substance use type: marijuana Additional living arrangements comments: Resides in [place] with his spouse and their 2 dogs. Additional occupation/education comments: Retired from the [employer]. Gender identity (if verbalized by the patient): Male Spiritual care concerns: No Exam Narrative: Exam Narrative: GENERAL: Well-appearing, well-nourished, and in no acute distress. HEAD: Normocephalic, atraumatic. EYES: PERRL, has preferential gaze to the right but can look past midline to the left ENT: Mucous membranes moist. CHEST: Clear to auscultation. No respiratory distress. HEART: Regular rate and rhythm. Normal peripheral pulses. ABDOMEN: Soft, nontender, nondistended. EXTREMITIES: Abrasions to left sh
== END 2021-05-14 11:13 | disposition home or self-care (01) ==
PROVIDERS: Emergency Provider Emergency Medicine; PCP Emergency Medicine
DX: S40.012A Contusion of left shoulder, initial encounter (principal); R53.1 Weakness; G93.6 Cerebral edema; C71.9 Malignant neoplasm of brain, unspecified; Z92.3 Personal history of irradiation; N40.0 Benign prostatic hyperplasia without lower urinary tract symptoms; Z86.73 Personal history of transient ischemic attack (TIA), and cerebral infarction without residual deficits; I10 Essential (primary) hypertension; I34.1 Nonrheumatic mitral (valve) prolapse; Z90.79 Acquired absence of other genital organ(s); Z87.891 Personal history of nicotine dependence; Z66 Do not resuscitate
CPT/HCPCS: 36415; 70450; 73030; 80048; 85025; 96374; 99284; J2270